=== PATIENT | male | born 1965 | race Two or more races ===

== ENCOUNTER 2022-01-19 16:27 | Inpatient (IN) | payer OTHER ==
[~2022-01-19] VITALS: Ht 170.2 cm; Wt 96.6 kg
[2022-01-19] MEDS ORDERED: HYDROCHLOROTHIA25 MG PO (18:40)
[2022-01-19] MEDS ORDERED: LISINOPRIL20 MG PO (18:40)
[2022-01-19] MEDS ORDERED: LANTUS 3ML100 UNITS/ SUBD (18:40)
[2022-01-19] MEDS ORDERED: AMLODIPINE BESY10 MG PO (18:40)
[2022-01-19] MEDS ORDERED: ACTOS15 MG PO (18:41)
[2022-01-19] MEDS ORDERED: ASPIRIN CHEW81 MG PO (18:41)
[2022-01-19] MEDS ORDERED: METFORMIN HCL500 MG PO (18:42)
[2022-01-19] MEDS ORDERED: TRULICITY1.5 MG/0.5 SUBD (18:44)
[2022-01-19] MEDS ORDERED: POTASSIUM CHLO20 ME1 PO (18:44)
[2022-01-19 19:28] VITALS: BP 151/71
[2022-01-19] MEDS ORDERED: ACETAMINOPHEN 325 MG TAB PO PRN (19:30)
[2022-01-19] MEDS ORDERED: TEMAZEPAM 15 MG CAP PO PRN (19:30)
[2022-01-19] MEDS ORDERED: POLYETHYLENE GLYCOL 3350 17 GM PACK PO PRN (19:30)
[2022-01-19] MEDS ORDERED: HYDRALAZINE HCL 20 MG/ML VIAL IV PRN (19:30)
[2022-01-19 19:53] VITALS: BP 140/72
[2022-01-19 20:44] LABS: CLARITY,URINE CLEAR (CLEAR); COLOR,URINE YELLOW (YELLOW); KETONES,URINE NEGATIVE (NEGATIVE); LEUKOCYTE ESTERASE ,URINE NEGATIVE (NEGATIVE); NITRITE,URINE NEGATIVE (NEGATIVE); PROTEIN,URINE DIPSTICK NEGATIVE (NEGATIVE); URINE UROBILINOGEN 0.2 mg/dL (0.2 - 1)
[2022-01-19 20:54] LABS: EPITHELIAL CELLS,URINE RARE /LPF; RBC,URINE 21-50 /HPF (0-5)
[2022-01-19 21:00] VITALS: BP 140/72
[2022-01-19] MEDS: SODIUM CHLORIDE 0.9% 1000ML 1,000 ML IV SCH (22:14)
[2022-01-19] MEDS: DOCUSATE SODIUM 100 MG CAP PO SCH (22:14)
[2022-01-19] MEDS: INSULIN GLARGINE 100 UNITS/ML VIAL SQ SCH (22:18)
[2022-01-19] MEDS: ONDANSETRON HCL INJ 2MG/ML 2ML 2 MG/ML VIAL IV PRN (22:25)
[2022-01-19] MEDS: Morphine 2mg Syringe 2 MG/ML SYR IV PRN (22:25)
[2022-01-20] VITALS (8 sets, daily range): BP systolic 117–164; BP diastolic 62–93
[2022-01-20] MEDS: Morphine 2mg Syringe 2 MG/ML SYR IV PRN ×6 (03:07→21:31)
[2022-01-20] MEDS: SODIUM CHLORIDE 0.9% 1000ML 1,000 ML IV SCH ×3 (04:22→21:31)
[2022-01-20 05:30] LABS: BASOPHILS % 0.3 % (0.0-1.0); EOSINOPHILS # (AUTO) 0.2 (0.0-0.4); EOSINOPHILS % 1.6 % (0.0-6.0); HEMATOCRIT 41.7 % (38.2-49.6); HEMOGLOBIN 13.5 g/dL (14.0-18.0); LYMPHOCYTES # (AUTO) 3.1 (1.0-3.2); LYMPHOCYTES % 27.8 % (18.0-39.1); MEAN CORPUSCULAR HEMOGLOBIN 30.5 pg (28-32); MEAN CORPUSCULAR HGB CONC 32.4 g/dL (31-35); MEAN CORPUSCULAR VOLUME 94.1 fL (81-99); MONOCYTES % 9.1 % (4.4-11.3); NEUTROPHILS # (AUTO) 6.8 (2.1-6.9); NEUTROPHILS % 60.9 % (38.7-80.0); PLATELET COUNT 236 x10e3/uL (140-360); RED BLOOD COUNT 4.43 x10e6/uL (4.3-5.7); RED CELL DISTRIBUTION WIDTH 11.8 % (11.7-14.4)
[2022-01-20 05:51] LABS: ALBUMIN 3.2 g/dL (3.5-5.0); ALBUMIN/GLOBULIN RATIO 0.8 (0.8-2.0); ANION GAP 13.3 mmol/L (8-16); CALCIUM 8.2 mg/dL (8.4-10.2); CHOL/HDL RATIO 2.7 (3.9-4.7); CREATININE, SERUM 1.34 mg/dL (0.72-1.25); MAGNESIUM 1.9 MG/DL (1.3-2.1); PHOSPHORUS 3.6 MG/DL (2.3-4.7); POTASSIUM 4.3 mmol/L (3.5-5.1)
[2022-01-20 06:11] LABS: THYROID STIMULATING HORMONE 1.604 uIU/mL (0.350-4.940)
[2022-01-20] MEDS ORDERED: DOCUSATE SODIUM 100 MG CAP PO SCH (09:00)
[2022-01-20] MEDS: POTASSIUM CHLORIDE 20 MEQ TAB CR PO SCH (09:00)
[2022-01-20] MEDS: METFORMIN HCL 500 MG TAB PO SCH (09:00)
[2022-01-20] MEDS: DOCUSATE SODIUM 100 MG CAP PO SCH ×3 (09:04→21:31)
[2022-01-20] MEDS: ASPIRIN 81 MG CHEW TAB PO SCH (09:05)
[2022-01-20] MEDS: FAMOTIDINE 20 MG TAB PO SCH ×2 (09:06→16:30)
[2022-01-20] MEDS: AMLODIPINE BESYLATE 10 MG TAB PO SCH (09:07)
[2022-01-20] MEDS: HYDRALAZINE HCL 25 MG TAB PO SCH ×2 (09:09→17:00)
[2022-01-20] MEDS: ONDANSETRON HCL INJ 2MG/ML 2ML 2 MG/ML VIAL IV PRN (14:10)
[2022-01-20] MEDS: INSULIN GLARGINE 100 UNITS/ML VIAL SQ SCH (21:39)
[2022-01-21] VITALS (7 sets, daily range): BP systolic 134–148; BP diastolic 68–80
[2022-01-21] MEDS: Morphine 2mg Syringe 2 MG/ML SYR IV PRN (04:38)
[2022-01-21] MEDS: SODIUM CHLORIDE 0.9% 1000ML 1,000 ML IV SCH ×3 (04:38→21:20)
[2022-01-21 05:44] LABS: BASOPHILS % 0.3 % (0.0-1.0); EOSINOPHILS # (AUTO) 0.1 (0.0-0.4); EOSINOPHILS % 1.1 % (0.0-6.0); HEMATOCRIT 41.7 % (38.2-49.6); HEMOGLOBIN 13.7 g/dL (14.0-18.0); LYMPHOCYTES # (AUTO) 2.6 (1.0-3.2); LYMPHOCYTES % 22.1 % (18.0-39.1); MEAN CORPUSCULAR HEMOGLOBIN 30.6 pg (28-32); MEAN CORPUSCULAR HGB CONC 32.9 g/dL (31-35); MEAN CORPUSCULAR VOLUME 93.1 fL (81-99); MONOCYTES # (AUTO) 1.2 (0.2-0.8); MONOCYTES % 10.1 % (4.4-11.3); NEUTROPHILS # (AUTO) 7.9 (2.1-6.9); NEUTROPHILS % 66.1 % (38.7-80.0); PLATELET COUNT 240 x10e3/uL (140-360); RED BLOOD COUNT 4.48 x10e6/uL (4.3-5.7); RED CELL DISTRIBUTION WIDTH 11.5 % (11.7-14.4)
[2022-01-21 06:33] LABS: ANION GAP 14.9 mmol/L (8-16); CALCIUM 8.8 mg/dL (8.4-10.2); CREATININE, SERUM 1.22 mg/dL (0.72-1.25); POTASSIUM 3.9 mmol/L (3.5-5.1)
[2022-01-21] MEDS: METFORMIN HCL 500 MG TAB PO SCH (09:30)
[2022-01-21] MEDS: ASPIRIN 81 MG CHEW TAB PO SCH (09:30)
[2022-01-21] MEDS: DOCUSATE SODIUM 100 MG CAP PO SCH ×3 (09:31→21:19)
[2022-01-21] MEDS: HYDRALAZINE HCL 25 MG TAB PO SCH ×2 (09:31→16:24)
[2022-01-21] MEDS: POTASSIUM CHLORIDE 20 MEQ TAB CR PO SCH (09:31)
[2022-01-21] MEDS: AMLODIPINE BESYLATE 10 MG TAB PO SCH (09:32)
[2022-01-21] MEDS: FAMOTIDINE 20 MG TAB PO SCH ×2 (09:33→16:25)
[2022-01-21] MEDS: TRAMADOL HCL 50 MG TAB PO PRN ×2 (10:43→18:17)
[2022-01-21] MEDS: SENNA-S TABLET PO SCH (18:13)
[2022-01-21 21:03] LABS: CLARITY,URINE CLEAR (CLEAR); COLOR,URINE YELLOW (YELLOW); LEUKOCYTE ESTERASE ,URINE NEGATIVE (NEGATIVE); NITRITE,URINE NEGATIVE (NEGATIVE); PROTEIN,URINE DIPSTICK NEGATIVE (NEGATIVE)
[2022-01-21 21:04] LABS: KETONES,URINE NEGATIVE (NEGATIVE); URINE UROBILINOGEN 0.2 mg/dL (0.2 - 1)
[2022-01-21] MEDS: INSULIN GLARGINE 100 UNITS/ML VIAL SQ SCH (21:21)
[2022-01-22] VITALS: BP 136/77
[2022-01-22] MEDS: Morphine 2mg Syringe 2 MG/ML SYR IV PRN ×2 (01:44→05:19)
[2022-01-22 04:00] VITALS: BP 151/79
[2022-01-22] MEDS: SODIUM CHLORIDE 0.9% 1000ML 1,000 ML IV SCH ×2 (05:19→10:41)
[2022-01-22 05:36] LABS: BASOPHILS % 0.3 % (0.0-1.0); EOSINOPHILS # (AUTO) 0.2 (0.0-0.4); EOSINOPHILS % 2.2 % (0.0-6.0); HEMOGLOBIN 13.9 g/dL (14.0-18.0); LYMPHOCYTES # (AUTO) 2.4 (1.0-3.2); LYMPHOCYTES % 22.8 % (18.0-39.1); MEAN CORPUSCULAR HEMOGLOBIN 30.8 pg (28-32); MEAN CORPUSCULAR HGB CONC 33.1 g/dL (31-35); MEAN CORPUSCULAR VOLUME 92.9 fL (81-99); MONOCYTES # (AUTO) 0.9 (0.2-0.8); MONOCYTES % 8.3 % (4.4-11.3); NEUTROPHILS % 66.1 % (38.7-80.0); PLATELET COUNT 247 x10e3/uL (140-360); RED BLOOD COUNT 4.52 x10e6/uL (4.3-5.7); RED CELL DISTRIBUTION WIDTH 11.4 % (11.7-14.4)
[2022-01-22 05:57] LABS: ANION GAP 15.3 mmol/L (8-16); CALCIUM 9.1 mg/dL (8.4-10.2); CREATININE, SERUM 1.27 mg/dL (0.72-1.25); MAGNESIUM 1.9 MG/DL (1.3-2.1); PHOSPHORUS 4.2 MG/DL (2.3-4.7); POTASSIUM 4.3 mmol/L (3.5-5.1)
[2022-01-22] MEDS: FAMOTIDINE 20 MG TAB PO SCH (07:30)
[2022-01-22] MEDS: METFORMIN HCL 500 MG TAB PO SCH (07:36)
[2022-01-22] MEDS ORDERED: IOPAMIDOL 300MG/ML 50ML INFUS..BTL IV ONE (07:43)
[2022-01-22 09:29] VITALS: BP 125/70
[2022-01-22] MEDS: POTASSIUM CHLORIDE 20 MEQ TAB CR PO SCH (10:31)
[2022-01-22] MEDS: HYDRALAZINE HCL 25 MG TAB PO SCH (10:32)
[2022-01-22] MEDS: SENNA-S TABLET PO SCH (10:32)
[2022-01-22] MEDS: AMLODIPINE BESYLATE 10 MG TAB PO SCH (10:32)
[2022-01-22] MEDS: ASPIRIN 81 MG CHEW TAB PO SCH (10:32)
[2022-01-22] MEDS: DOCUSATE SODIUM 100 MG CAP PO SCH (10:32)
[2022-01-22 11:40] VITALS: BP 150/80
[2022-01-22 12:43] VITALS: BP 150/80
[2022-01-22] MEDS ORDERED: ACETAMIN-CODE12.5 ML PO (14:38)
[2022-01-22] MEDS ORDERED: Docusate Sodium PO (14:38)
[2022-01-22] MEDS ORDERED: ACETAMINOPHEN325 M1 PO (14:38)
[2022-01-22] MEDS ORDERED: BACTRIM DS TAB1 EACH PO (14:38)
[2022-01-22] MEDS ORDERED: ONDANSETRON HCL INJ 2MG/ML 2ML 2 MG/ML VIAL ONE (17:08)
[2022-01-22] MEDS ORDERED: POVIDONE IODINE 0.05% 0.05 % ML PO ONE (17:08)
[2022-01-22] MEDS ORDERED: PROPOFOL IV EMULSION 10 MG/ML 20 ML VIAL ONE (17:08)
[2022-01-22] MEDS ORDERED: LIDOCAINE HCL 2% LOCAL INJ 5 ML SDV VIAL INJ ONE (17:08)
[2022-01-22] MEDS ORDERED: METOCLOPRAMIDE HCL 10 MG/2ML VIAL ONE (17:08)
[2022-01-22] MEDS ORDERED: CEFTRIAXONE 1 GM VIAL ONE (17:08)
[2022-01-26] MEDS ORDERED: (Dulaglutide (Trulicity) 1.5 MG) SC SCH (09:00)
== END 2022-01-22 15:11 | disposition home or self-care (01) | DRG 661 ==
LOC: MED/SURG 18:03 → OBSVTOIN 01-21 08:41
PROVIDERS: ADMIT Internal Medicine; ATTEND Internal Medicine
PROC: 0T768DZ Dilation of Right Ureter with Intraluminal Device, Via Natural or Artificial Opening Endoscopic (ICD-10-PCS; 2022-01-22)
PROC: BT1D1ZZ Fluoroscopy of Right Kidney, Ureter and Bladder using Low Osmolar Contrast (ICD-10-PCS; 2022-01-22)
PROC: 0TC68ZZ Extirpation of Matter from Right Ureter, Via Natural or Artificial Opening Endoscopic (ICD-10-PCS; principal; 2022-01-22 07:40)
DX: N13.6 Pyonephrosis (principal); N20.0 Calculus of kidney; N17.9 Acute kidney failure, unspecified; K76.0 Fatty (change of) liver, not elsewhere classified; F10.20 Alcohol dependence, uncomplicated; E11.65 Type 2 diabetes mellitus with hyperglycemia; K21.9 Gastro-esophageal reflux disease without esophagitis; E66.09 Other obesity due to excess calories; Z68.33 Body mass index [BMI] 33.0-33.9, adult; K59.00 Constipation, unspecified; Z20.822 Contact with and (suspected) exposure to COVID-19
CPT/HCPCS: 36415; 74018; 74420; 80048; 80053; 80061; 81001; 82948; 83036; 83735; 84100; 84443; 85025; 87086; 88300; C1758; C1874; G0378; J0360; J0696; J1815; J2001; J2270; J2405; J2765; J7030

== ENCOUNTER → 2022-02-19 | Day surgery (SDC) | payer OTHER ==
[2022-02-18 13:54] LABS: CALCIUM 9.6 mg/dL (8.4-10.2); CREATININE, SERUM 1.03 mg/dL (0.72-1.25)
[~2022-02-19] MED LIST: ACETAMIN-CODE12.5 ML PO; ACETAMINOPHEN325 M1 PO; ACTOS15 MG PO; AMLODIPINE BESY10 MG PO; ASPIRIN CHEW81 MG PO; BACTRIM DS TAB1 EACH PO; CEFTRIAXONE 1 GM VIAL ONE; Docusate Sodium PO; FENTANYL CITRATE/PF 100MCG/2 ML INJ ONE; HYDROCHLOROTHIA25 MG PO; IOPAMIDOL 610MG/1ML 300 MG/ML VIAL IV ONE; KETOROLAC TROMETHAMINE 30 MG/ML VIAL ONE; LANTUS 3ML100 UNITS/ SUBD; LIDOCAINE HCL 2% LOCAL INJ 5 ML SDV VIAL INJ ONE; LISINOPRIL20 MG PO; METFORMIN HCL500 MG PO; MIDAZOLAM HCL 2 MG/2 ML VIAL ONE; ONDANSETRON HCL INJ 2MG/ML 2ML 2 MG/ML VIAL ONE; POTASSIUM CHLO20 ME1 PO; POVIDONE IODINE 0.05% 0.05 % ML PO ONE; PROPOFOL IV EMULSION 10 MG/ML 20 ML VIAL ONE; SEVOFLURANE INHAL SOLN 250 ML PEN BTL ONE; TRULICITY1.5 MG/0.5 SUBD
[2022-02-19 08:20] VITALS: BP 131/82
== END | disposition home or self-care (01) ==
LOC: OR 06:58
PROVIDERS: ATTEND Urology
DX: N13.5 Crossing vessel and stricture of ureter without hydronephrosis (principal); Z46.6 Encounter for fitting and adjustment of urinary device; N20.1 Calculus of ureter; N13.30 Unspecified hydronephrosis; R06.83 Snoring; I10 Essential (primary) hypertension; E11.9 Type 2 diabetes mellitus without complications; E66.01 Morbid (severe) obesity due to excess calories; K76.0 Fatty (change of) liver, not elsewhere classified; Z01.810 Encounter for preprocedural cardiovascular examination; Z01.812 Encounter for preprocedural laboratory examination; Z79.82 Long term (current) use of aspirin; Z79.4 Long term (current) use of insulin; Z79.899 Other long term (current) drug therapy; Z68.32 Body mass index [BMI] 32.0-32.9, adult
CPT/HCPCS: 36415 ×2; 52351; 74420; 80048; 82948; 93005; C1758; C1769; J0696; J1885; J2001; J2250; J2405; J2704; J3010; Q9967